=== PATIENT | female | born 2005 | race Two or more races ===

== ENCOUNTER 2024-10-27 01:07 | Emergency (ER) | payer BC, SELFPAY ==
[2024-10-27 01:08] VITALS: BMI 26.1
[2024-10-27 02:14] VITALS: BP 110/72; PULSE 73; RESP 19; TEMP 36.7; O2SAT 98
[2024-10-27 05:22] LABS: Basophils # (Auto) 0.1 Thou/mm3 (0.0-0.2); Basophils % (Auto) 0 % (0-2.5); Eosinophils # (Auto) 0.2 Thou/mm3 (0.0-0.5); Eosinophils % (Auto) 1 % (0-10); Hematocrit 41.2 % (36.0-46.0); Hemoglobin 14.4 g/dL (12.0-16.0); Immature Granulocytes % (Auto) 0 % (0-0); Immature Granulocytes Auto 0.04 Thou/mm3 (0.00-0.00); Lymphocytes # (Auto) 1.9 Thou/mm3 (1.0-4.8); Lymphocytes % (Auto) 11 % (10-50); Mean Corpuscular Hemoglobin 29.9 pg (25.0-35.0); Mean Corpuscular Volume 86 fL (80-100); Monocytes # (Auto) 1.4 Thou/mm3 (0.0-0.8); Monocytes % (Auto) 9 % (0-12); Neutrophils # (Auto) 12.8 Thou/mm3 (1.8-7.7); Neutrophils % (Auto) 78 % (37-80); Nucleated Red Blood Cell % 0 /100 WBC (0); Platelet Count 360 Thou/mm3 (140-440); RDW Standard Deviation 41.2 fL (36.4-46.3); Red Blood Count 4.81 Miln/mm3 (4.00-5.20); White Blood Count 16.4 Thou/mm3 (3.6-11.0)
--- NOTE | 2024-10-27 05:58 | PD.EDABDPN ---
ED Abdominal Pain RME/HPI General Chief Complaint: Abdominal Pain Stated complaint: MID ABDOMINAL PAIN RADIATES TO BACK Time seen by provider: 10/27/24 02:43 Arrival date/time: 10/27/24 01:07 Source: patient and family Mode of arrival: ambulatory Limitations: no limitations RME / HPI RME / HPI narrative: 19-year-old female presents to the ED with a complaint of left flank pain that radiates to her abdomen with associated nausea and vomiting. She indicates she usually gets this pain around the time of her menstrual cycle, but this time its much different in that when she vomited, she noticed blood streaks in the vomit. Her and her mother became concerned because she had never had blood streaked emesis. She denies fever or chills, dysuria or frequency. She denies diarrhea. Related Data Allergies Allergy/AdvReac Type Severity Reaction Status Date / Time No Known Allergies Allergy Verified 10/27/24 01:10 Review of Systems Review of Systems Systems Reviewed: All systems reviewed, normal except as documented Past Medical History Social History SMOKING STATUS: Never smoker ED Exam Narrative Physical exam: Alert and oriented 19-year-old female, no acute distress. She is afebrile. Blood pressure 110/72, pulse 73 and regular, respirations 19 and nonlabor, temperature 98.1, O2 sat 98% on room air. Lungs are clear, cardiovascular regular rate and rhythm, she has positive left CVA tenderness. Bowel sounds are present, abdomen is soft with mild generalized tenderness, worse in the left flank and right lower quadrant areas. No rebound or guarding. General Limitations: Present no limitations Course Course Course Narrative: 19-year-old female presents to the ED with a complaint of left flank pain that radiates to her abdomen with associated nausea and vomiting. She indicates she usually gets this pain around the time of her menstrual cycle, but this time its much different in that when she vomited, she noticed blood streaks in the vomit. Her and her mother became concerned because she had never had blood streaked emesis. She denies fever or chills, dysuria or frequency. She denies diarrhea. Alert and oriented 19-year-old female, no acute distress. She is afebrile. Blood pressure 110/72, pulse 73 and regular, respirations 19 and nonlabor, temperature 98.1, O2 sat 98% on room air. Lungs are clear, cardiovascular regular rate and rhythm, she has positive left CVA tenderness. Bowel sounds are present, abdomen is soft with mild generalized tenderness, worse in the left flank and right lower quadrant areas. No rebound or guarding. Labs reveal an elevated white count of 16.9, normal H&H, normal platelets. Chemistry panel, amylase and lipase as well as urinalysis with urine hCG are still pending. CT of the abdomen and pelvis with contrast has been ordered and pending due to the elevated white count. Quality Measures none Orders Category Date Time Status CT Screening NOW Care 10/27/24 05:[address] Screening X1 Care 10/27/24 05:[address] abdomen pelvis w con Stat Exams 10/27/24 05:33 Ordered Amylase Stat Lab 10/27/24 05:15 Received CBC Stat Lab 10/27/24 05:15 Completed CMP [Comprehensive Metabolic Panel] Stat Lab 10/27/24 05:15 Received HCG Qualitative,Urine Stat Lab 10/27/24 05:35 Ordered Lipase Stat Lab 10/27/24 05:15 Received Urinalysis Stat Lab 10/27/24 04:40 Ordered Urine Culture Stat Lab 10/27/24 04:40 Ordered Ketorolac Inj [Toradol Inj] Med 10/27/24 05:23 Discontinued 30 mg IM X1 ONE Vital Signs Vital signs: Vital Signs Temperature 98.1 F 10/27/24 02:14 Pulse Rate 73 10/27/24 02:14 Respiratory Rate 19 10/27/24 02:14 Blood Pressure 110/72 10/27/24 02:14 Pulse Oximetry (%) 98 10/27/24 02:14 Oxygen Delivery Method Room Air 10/27/24 02:14 Abdominal Pain MDM MDM Narrative MDM Narrative:: 19-year-old female presents to the ED with a complaint of left flank pain that radiates to her abdomen with associated nausea and vomiting. She indicates she usually gets this pain around the time of her menstrual cycle, but this time its much different in that when she vomited, she noticed blood streaks in the vomit. Her and her mother became concerned because she had never had blood streaked emesis. She denies fever or chills, dysuria or frequency. She denies diarrhea. Alert and oriented 19-year-old female, no acute distress. She is afebrile. Blood pressure 110/72, pulse 73 and regular, respirations 19 and nonlabor, temperature 98.1, O2 sat 98% on room air. Lungs are clear, cardiovascular regular rate and rhythm, she has positive left CVA tenderness. Bowel sounds are present, abdomen is soft with mild generalized tenderness, worse in the left flank and right lower quadrant areas. No rebound or guarding. Labs reveal an elevated white count of 16.9, normal H&H, normal platelets. Chemistry panel, amylase and lipase as well as urinalysis with urine hCG are still pending. CT of the abdomen and pelvis with contrast has been ordered and pending due to the elevated white count. Care of patient transferred to Dr. Danielson at the end of shift. Patient data External records reviewed:: None Clinical information provided by:: patient Social determinants that could affect healthcare access:: none Patient has the following chronic illnesses:: N/A How is presenting disease/condition affected by chronic disease/condition?: no chronic disease Evaluation data Lab and/or radiology exams considered but not ordered:: N/A Medications / Prescriptions Medication administrations:: Medication Administration History Discontinued Medications Ketorolac Tromethamine (Ketorolac Inj 60 Mg/2 Ml Vial) 30 mg IM X1 ONE Stop: 10/27/24 05:24 Patient was given Toradol 30 mg IM. Consultations Consultation(s) initiated? (list below): No Diagnosis Differential diagnosis abdominal pain: abdominal pain, acute appendicitis, calculus of kidney, endometriosis, gastroenteritis, pancreatitis and other (Pyelonephritis) Discharge Plan Prescriptions/Referrals Referrals: Lj Llamas MD [Primary Care Provider] - In 1 week Patient/Caregiver Discharge Instructions Print Language: Wolof
[2024-10-27] MEDS: KETOROLAC INJ 60 MG/2 ML VIAL 30 MG IM (06:32)
[2024-10-27] MEDS: ONDANSETRON INJ 2 MG/ML INJ 2 ML 4 MG IVP (06:33)
--- NOTE | 2024-10-27 06:58 | XR_ITS ---
Examination: Pelvic ultrasound, transabdominal, complete Technique: Transabdominal ultrasound of the pelvis performed using grayscale imaging Date and time of exam: October 27, 2024 0734 hours INDICATIONS: Onset pelvic pain beginning yesterday FINDINGS: Uterus 7.8 cm endometrial stripe 0.5 cm No uterine mass or intrauterine gestation Right ovary 7.8 cm arterial flow, 6.1 x 4.8 x 4.5 cm simple cyst Left ovary 4.1 cm arterial flow IMPRESSION: Right ovarian simple cyst, 6.1 x 4.8 x 4.5 cm
--- NOTE | 2024-10-27 07:15 | XR_ITS ---
Examination: PA chest single view TECHNIQUE: Upright PA chest single view Date and time: October 27, 2024 at 0721 hours INDICATIONS: Coughing beginning 2 days ago. FINDINGS: Normal heart size. Lungs are clear. The osseous structures are intact IMPRESSION: No active disease
--- NOTE | 2024-10-27 07:15 | EKG_ITS ---
[facility] Test Date: 2024-10-27 Pat Name: MARIANNE CRUMP Department: Room: - Gender: Female Performance Analyst: : 2005 Requested By: Romero Talbot Order Number: [id number] Reading MD: Romero Talbot Measurements Intervals [place] Rate: 70 P: 47 FL: 179 QRS: 69 QRSD: 85 T: 55 QT: 382 QTc: 414 Interpretive Statements SINUS RHYTHM No previous ECG available for comparison /store/S0/[id number]/ecg/[id number].pdf
[2024-10-27 07:19] LABS: Alanine Aminotransferase 28 U/L (10-49); Albumin, Serum 4.6 gm/dL (3.5-5.0); Albumin/Globulin Ratio 1.7 (1.2-2.2); Alkaline Phosphatase 78 U/L (46-116); Amylase 67 U/L (30-118); Anion Gap 13 (7-16); BUN/Creatinine Ratio 15 Ratio (12-20); Bilirubin,Total 0.7 mg/dL (0.3-1.2); Blood Urea Nitrogen 12 mg/dL (9-23); Calcium 9.7 mg/dL (8.3-10.6); Calcium (Corrected) 9.7 mg/dL (8.5-10.1); Carbon Dioxide 27.9 mMol/L (20.0-31.0); Chloride 102 mMol/L (98-107); Creatinine (Component) 0.8 mg/dL (0.6-1.3); Estimated Creatinine Clearance 106.1 mL/min (>60); Globulin 2.7 gm/dL (2.3-3.5); Glucose 90 mg/dL (74-106); Lipase 28 U/L (12-53); Osmolality,Calculated 284 (275-295); Potassium 3.9 mMol/L (3.4-5.1); Sodium 143 mMol/L (136-145); Total Protein 7.3 gm/dL (5.7-8.2); eGFR > 60 See Note
--- NOTE | 2024-10-27 07:38 | EDNOTE_ITS ---
Emergency Room Addendum Addendum Narrative: 0600: Care assumed from GEE Juárez, the previous shift emergency physician. Past medical, surgical, social and family history reviewed. Vitals and home medications reviewed. I will assume the care of the patient at this time pending CT abdomen pelvis, reassessment, and final disposition. Please refer to the emergency department record for history and examination from initial visit.?The following addendum documentation note is intended to reflect any pending information, findings, or radiology results not included in the patient?s initial chart. Nursing notes reviewed by me. Vital signs reviewed by me. [place] medical records reviewed by me. Patient has no previous ED visits for review. 0645: 19 year old female with no significant chronic medical history presented to the ED, accompanied by her mother, for evaluation of back pain that began at 3PM yesterday. The patient describes the pain as a moderate, aching sensation localized to the left lower back. It is associated with a sensation of abdominal bloating, with the patient describing her stomach as feeling like a balloon, as well as nausea and vomiting (6 episodes in the last 24 hours). She reports a history of similar pain and symptoms that began when she was 12 years old, which typically occur during menstruation. However, her mother notes that the pain has progressively worsened since its onset. The patient states that her menses began 7 days ago, but she is currently only experiencing light spotting. The patient?s mother also mentions that her older sister had a uterine fibroid removed, and that the mother herself has a history of fibroids. On examination, the abdomen is benign. CT scan of abdomen was cancelled and ultrasound pelvis was ordered. EKG interpreted by me, 10/27/2024 @ 08:16 AM. Sinus rhythm, rate 70, no STEMI, MA 179ms, QRS 85ms, QT/QTc 382/403ms. 0930: We reviewed all the results, analysis, and treatment plans. Patient is amenable to discharge. Strict return precautions were outlined. Patient was discharged in stable condition. RADIOLOGY Ordering Physician: Romero Danielson MD Date of Service: 10/27/24 Procedure(s): US pelvic complete Accession Number(s): [id number] cc: Romero Danielson MD; Garth Garcia MD; Lj Llamas MD~ Examination: Pelvic ultrasound, transabdominal, complete Technique: Transabdominal ultrasound of the pelvis performed using grayscale imaging Date and time of exam: October 27, 2024 0734 hours INDICATIONS: Onset pelvic pain beginning yesterday FINDINGS: Uterus 7.8 cm endometrial stripe 0.5 cm No uterine mass or intrauterine gestation Right ovary 7.8 cm arterial flow, 6.1 x 4.8 x 4.5 cm simple cyst Left ovary 4.1 cm arterial flow IMPRESSION: Right ovarian simple cyst, 6.1 x 4.8 x 4.5 cm Dictated By: Garth Garcia MD Signed By: <Electronically signed by Garth Garcia MD in OV>10/27/24 0806
[2024-10-27 08:25] VITALS: BP 89/57; BP 98/65; PULSE 74; RESP 18; TEMP 36.7; O2SAT 97
[2024-10-27 08:32] VITALS: BP 98/65; PULSE 74; RESP 18; O2SAT 97
[2024-10-27] MEDS: ACETAMINOPHEN 200 MG IV (09:10)
--- NOTE | 2024-10-27 09:14 | PC.NURSE ---
Dr. Danielson in to assess patient/ discuss results. Per MD patient to be given IV Tylenol then most likely discharge home. Patient to follow up with PCP and [facility]. Informed MD patient's urine has not been collected, per MD we will cancel the order for urine, blood cultures and see how patient does after IV Tylenol administered. Patient agrees
[2024-10-27 10:29] VITALS: BP 92/67; PULSE 79; RESP 18; TEMP 36.9; O2SAT 97
== END 2024-10-27 10:31 | disposition home or self-care (01) ==
PROVIDERS: Physician Assistant; Emergency Provider Family Medicine; PCP Family Medicine
DX: N83.291 Other ovarian cyst, right side (principal); R05.9 Cough, unspecified; R11.2 Nausea with vomiting, unspecified; D72.829 Elevated white blood cell count, unspecified
CPT/HCPCS: 36415; 71045; 76856; 80053; 81001; 81025; 82150; 83605; 83690; 84484; 85025; 85610; 85730; 87040; 87086; 93005; 96365; 96372; 96375; 99284; J0131; J1885; J2405

== ENCOUNTER → 2024-11-26 | Outpatient (CLI) | payer OTHER, SELFPAY ==
--- NOTE | 2024-11-26 13:53 | XR_ITS ---
Examination: Tibia-Fibula, right , 2 views Technique: Tibia-fibula AP lateral 2 views Date and time of exam: November 26, 2024 1414 hours INDICATIONS: Injury to lower leg November 24, 2024 with persistent lower leg pain. FINDINGS: No fracture or dislocation. No foreign body IMPRESSION: No fracture or dislocation
--- NOTE | 2024-11-26 13:53 | XR_ITS ---
EXAMINATION: Ankle, right 3 views . Technique: Ankle AP, oblique, lateral 3 views Date and time of exam: November 26, 2024 1414 hours INDICATIONS: Injury to the ankle November 24, 2024 with ankle pain. FINDINGS: No fracture or dislocation. No foreign body IMPRESSION: No fracture or dislocation
== END | disposition home or self-care (01) ==
LOC: CDIM 13:40
PROVIDERS: PCP Family Medicine; Referring Provider Physician Assistant; Visit Provider Physician Assistant
DX: S89.91XA Unspecified injury of right lower leg, initial encounter (principal); S90.911A Unspecified superficial injury of right ankle, initial encounter; X58.XXXA Exposure to other specified factors, initial encounter
CPT/HCPCS: 73590; 73610

== ENCOUNTER 2025-02-10 09:58 | Outpatient (AMB) | payer BC, SELFPAY ==
[2025-02-10 10:24] VITALS: BP 108/67; PULSE 81; RESP 17; TEMP 36.4; O2SAT 97; BMI 26.9
--- NOTE | 2025-02-10 10:24 | AMB.GYNCLNOT ---
Vital Signs 02/10/25 10:24 Height 1.63 m Height Method Stated Weight 71.271 kg Weight Measurement Method Standing Scale BMI 26.9 BP 108/67 Blood Pressure Source Automatic Cuff Blood Pressure Location Right Upper Arm Position Sitting Respiration 17 Pulse 81 Pulse Source Monitor Temp 97.6 F Temp Source Temporal Artery Scan Pulse Oximetry (%) 97 Oxygen Delivery Method Room Air Allergies/Home Meds Allergies & Medications Allergies No Known Allergies Allergy (Verified 10/27/24 01:10) Intake Visit Data Collection New Patient or Established: Established Patient (seen at [facility] within 3 years) Reason for Visit:: REF DYSMENORRHAGIA Fraud Examiner Required: No Do You Feel Safe at Home: Yes Authorities Contacted: N/A PCP or OBGYN visit in last 3 months: Yes Date of Last PCP or OBGYN visit: 12/03/24 Hx Now: No Are you currently on any form of Control: No Last menstrual period: 01/25/25 Pain Present Currently: No Smoking Status Smoking Status: Never smoker 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 She reports painful and irregular menstrual cycles since age 9, with her last menstrual period on 01/25/2025. The patient describes her menstrual cycles as irregular, sometimes occurring three times a month, with a duration of 7 days. She experiences heavy bleeding and pain during her periods. The pain is localized in her back and occurs either during or just before her menstrual cycle. Martine has never used control hormones to manage her symptoms. She reports that her condition impacts her daily functioning, though specific details were not provided. Martine has never had a pap smear and is currently not sexually active. She is taking sertraline 100 mg daily for OCD, which appears to be her only current medication. Medical History: - Obsessive-compulsive disorder (OCD), currently treated with medication - Dysmenorrhea since age 9 Obstetric History: - GPAL: A0 L0 - Patient is not currently Medications: - Sertraline 100 mg daily Social History: - Not currently sexually active Diagnostic Test Results and Labs: - Pelvic ultrasound (10/27/2024): Uterus normal, endometrial stripe 0.5 cm, right ovary 7.8 cm with cyst measuring 6.1 x 4.8 x 4.5 cm, left ovary 4.1 cm, no uterine mass or gestation Review of Systems Review of Systems Systems Reviewed: All systems reviewed, normal except as documented Exam General General Appearance: alert, in no apparent distress and healthy appearing Head Head exam: atraumatic Neck Neck exam: Present normal inspection and trachea midline Chest Chest inspection: Present normal inspection and symmetric chest wall rise External exam: Present normal external exam; Absent tenderness Neuro Neurological exam: Present oriented X3 Psych Psychiatric exam: Present normal affect and normal mood Assessment & Plan Diagnosis / Problem List (1) Cyst of right ovary: Status: Acute (2) Painful menstruation: Status: Acute Plan Dysmenorrhea with irregular menstrual cycles Assessment: Patient reports painful periods since age 9, with irregular cycles occurring up to three times a month. Pain is localized to the back, occurring during or just before menstruation. Last menstrual period was on 01/25/2025, lasting 7 days, with heavy flow. Differential diagnoses include dysmenorrhea, ovarian cysts, polycystic ovarian syndrome (PCOS), and endometriosis. Recent pelvic ultrasound (10/27/2024) showed a normal uterus with endometrial stripe of 0.5 cm, and a right ovarian cyst measuring 6.1 x 4.8 x 4.5 cm. Left ovary measured 4.1 cm. Patient has never been on hormonal control. Plan: - Prescribe tranexamic acid for heavy menstrual bleeding and associated pain - Start on first day of menstrual cycle for 5 days - Multiple refills provided - Order basic lab panel including ovarian and thyroid hormones - Repeat pelvic ultrasound in 3 months to reassess ovarian cyst size - Follow up in one month to review lab results and discuss further management - Maral to provide instructions and schedule follow-up appointment Right ovarian cyst Assessment: Pelvic ultrasound on 10/27/2024 revealed a right ovarian cyst measuring 6.1 x 4.8 x 4.5 cm. The right ovary measured 7.8 cm overall. This finding requires follow-up to monitor for potential growth or persistence. Plan: - Repeat pelvic ultrasound in 3 months to reassess cyst size - If cyst persists or grows, consider minimally invasive procedure for removal Obstetric-gynecological preventive care Assessment: Patient is 19 years old, 0, and has never had a Pap smear. She is currently not sexually active. Plan: - Discuss importance of cervical cancer screening and schedule first Pap smear
== END 2025-02-10 11:12 | disposition home or self-care (01) ==
LOC: HODSOBC 09:58
PROVIDERS: PCP Family Medicine; Referring Provider Family Medicine; Supervising Provider Obstetrics & Gynecology; Visit Provider Obstetrics & Gynecology
DX: N83.201 Unspecified ovarian cyst, right side (principal); N94.6 Dysmenorrhea, unspecified
CPT/HCPCS: 99213; G0463

== ENCOUNTER → 2025-02-13 | Outpatient (CLI) | payer BC, SELFPAY ==
--- NOTE | 2025-02-13 15:52 | XR_ITS ---
Examination: Pelvic ultrasound, transabdominal, complete Technique: Transabdominal ultrasound of the pelvis performed using grayscale imaging Date and time of exam: February 13, 2025, 1610 hours INDICATIONS: Right-sided abdominal pain pelvic pain 3 months FINDINGS: Uterus 7.0 cm endometrial stripe 0.6 cm No uterine mass or intrauterine gestation Right ovary 2.3 cm arterial flow. Left ovary 3.3 cm arterial flow, 2.1 x 1.5 x 2.3 cm simple cyst IMPRESSION: Left ovarian simple cyst 21 x 15 x 23 mm
--- NOTE | 2025-02-13 15:52 | XR_ITS ---
Examination: Transvaginal ultrasound of the pelvis, complete Technique: Transvaginal sonographic images pelvis performed using hussein scale imaging Exam date and time: February 13, 2025, 1620 hours FINDINGS: Uterus 7.1 cm endometrial stripe 0.6 cm No uterine mass or intrauterine gestation Right ovary 3.6 cm arterial flow small follicles Left ovary 3.5 cm arterial flows, small follicles the largest 14 mm IMPRESSION: No uterine mass or intrauterine gestation
== END | disposition home or self-care (01) ==
PROVIDERS: PCP Family Medicine; Referring Provider Obstetrics & Gynecology; Visit Provider Obstetrics & Gynecology
DX: N83.292 Other ovarian cyst, left side (principal)
CPT/HCPCS: 76830; 76856

== ENCOUNTER → 2025-03-11 | Outpatient (CLI) | payer BC, SELFPAY ==
[2025-03-11 13:45] LABS: Thyroid Stimulating Hormone 0.90 uIU/mL (0.55-4.78)
[2025-03-11 13:59] LABS: CA 125 12.0 U/mL (<30.2); Follicle Stimulating Hormone 7.07 mIU/mL (See Note)
[2025-03-17 06:39] LABS: DHEA Sulfate* 185 mcg/dL (51-321)
== END | disposition home or self-care (01) ==
LOC: COPL 11:59
PROVIDERS: PCP Family Medicine; Referring Provider Obstetrics & Gynecology; Visit Provider Obstetrics & Gynecology
DX: N83.201 Unspecified ovarian cyst, right side (principal)
CPT/HCPCS: 36415; 82627; 83001; 84443; 86304

== ENCOUNTER 2025-04-08 11:14 | Outpatient (AMB) | payer BC, SELFPAY ==
--- NOTE | 2025-04-08 11:34 | GYNCLNT_ITS ---
Vital Signs 04/08/25 11:35 Height 1.63 m Height Method Stated Weight 74.843 kg Weight Measurement Method Standing Scale BMI 28.1 BP 105/69 Blood Pressure Source Automatic Cuff Blood Pressure Location Right Upper Arm Position Sitting Respiration 18 Pulse 77 Pulse Source Monitor Temp 98.1 F Temp Source Temporal Artery Scan Pulse Oximetry (%) 97 Oxygen Delivery Method Room Air Allergies/Home Meds Allergies & Medications Allergies No Known Allergies Allergy (Verified 04/08/25 11:35) Medication Reconciliation drospirenone 3 mg-ethinyl estradiol 0.02 mg tablet (RASHAD (28)) 1 tab PO QDAY 84 days #84 tabs 04/09/25 [Rx] Intake Visit Data Collection New Patient or Established: Established Patient (seen at [facility] within 3 years) Reason for Visit:: FOLLOW UP US/ LAB RESULTS Seen by Clinical Staff ONLY (RN/MA): No 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 Do You Feel Safe at Home: Yes Authorities Contacted: N/A PCP or OBGYN visit in last 3 months: Yes Date of Last PCP or OBGYN visit: 02/10/25 Hx Now: No Are you currently on any form of Control: No Last menstrual period: 04/05/25 Pain Present Currently: Yes Pain Location: Abdomen (PELVIC) Pain Scale Used: Escobar-Huddleston/Numerical Pain scale:: 5 Smoking Status Smoking Status: Never smoker Immunizations Flu Vaccine in the Last 12 Months: No Flu Vaccine Exclusion Criteria: No Exclusion Criteria 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 1. Little interest or pleasure in doing things: not at all 2. Feeling down, depressed, or hopeless: not at all Total score: 0 PHQ-9 3. Trouble falling or staying asleep, or sleeping too much: Not at all 4. Feeling tired or having little energy: Not at all 5. Poor appetite or overeating: Not at all 6. Feeling bad about yourself - or that you are a failure or have let yourself or your family down: Not at all 7. Trouble concentrating on things, such as reading the newspaper or watching television: Not at all 8. Moving or speaking so slowly that other people could have noticed? - Or the opposite - being so fidgety or restless that you have been moving around a lot more than usual: not at all 9. Thoughts that you would be better off or of hurting yourself in some way: Not at all Total score: 0 If you checked off any problems, how difficult have these problems made it for you to do your work, take care of things at home, or get along with other people?: not difficult at all Source: Developed by Drs. Garland Forrest, Monica Joseph, Froylan Ortez and colleagues, with an educational deneen from [employer]. Depression screen completed yes Social History Living Situation History Marital Status: Unknown Lives With: Family Housing: House Tobacco History Smoking Status: Never smoker Second Hand Smoke Exposure: No Alcohol History Alcohol Intake: Never Domestic Abuse History Do You Feel Safe at Home: Yes History of Present Illness HPI Narrative Martine Wolf presents for follow-up regarding a previously identified ovarian cyst and ongoing severe menstrual pain. She reports experiencing unbearable pain every month during her menstrual periods. The pain is severe enough that she requires bedrest and has to miss work and school during her cycles. The patient had blood work completed approximately 3 weeks ago and underwent pelvic ultrasound imaging for evaluation of her symptoms. She is a student and reports missing work and school due to severe menstrual pain requiring bedrest. ROS: Genitourinary: Positive for severe pelvic pain with menstrual cycles requiring bedrest and causing work/school absences. Diagnostic Test Results and Labs: - Pelvic ultrasound: Uterus 7 cm, endometrial stripe 6 mm (normal), no mass, no gestation, no fibroids. Right ovary normal, left ovary normal. Previously identified cyst completely resolved. - CA-125: 21.25 (negative) - FSH: Normal (reference range <23) - Thyroid panel: Normal - DHEA: Negative for PCOS Exam General General Appearance: alert, in no apparent distress and healthy appearing Head Head exam: atraumatic Neck Neck exam: Present normal inspection and trachea midline Chest Chest inspection: Present normal inspection and symmetric chest wall rise External exam: Present normal external exam; Absent tenderness Neuro Neurological exam: Present oriented X3 Psych Psychiatric exam: Present normal affect and normal mood Office Procedures [facility] Clinic LOC & Office Proc's Nursing/Assessment Patient Status: Established Patient OB Clinic Nursing Assessment: Medication Reconciliation, Update PMH in EMR and Vital Signs OB Clinic Coordination of Care: Complex Care and Chronic Disease 1-5, Education Complex Pt/Fam, Consent,records obtained, informed consent, Results/Orders obtained and Staff clarify orders Established Patient Charge Established Patient Point Assignment: 95 Established Patient Point Charge: EP Level 3 (80-115) Assessment & Plan Diagnosis / Problem List (1) Painful menstruation: Status: Acute (2) Cyst of right ovary: Status: Acute Plan Severe Dysmenorrhea: - Unbearable monthly menstrual pain requiring bedrest and causing missed work and school. - Complete workup including pelvic ultrasound, CA-125, FSH, thyroid panel, and DHEA-S all normal. - Likely developing endometriosis given negative workup with persistent severe cyclical pain. Plan: - Start control pills to suppress body's own hormones and provide low-dose hormonal replacement. - Begin pills on day 4 of current menstrual cycle. - Prescription sent to [facility]. - If control pills ineffective, consider anti-hormonal therapy with Lupron to stop periods temporarily. - If medical management fails, laparoscopic surgery with camera to visualize and burn endometriosis lesions would be considered. - Follow-up in 3 months to assess symptom improvement. Resolved Ovarian Cyst: - Previous ovarian cyst completely resolved on follow-up ultrasound performed on 02/13/25. - Most likely was hemorrhagic cyst that formed during ovulation with blood clot absorbed over 2-3 months. Plan: - No further intervention needed for resolved cyst. - Continue routine monitoring. - Schedule 3-month follow-up appointment.
[2025-04-08 11:35] VITALS: BP 105/69; PULSE 77; RESP 18; TEMP 36.7; O2SAT 97; BMI 28.1
== END 2025-04-08 11:52 | disposition home or self-care (01) ==
LOC: HODSOBC 11:14
PROVIDERS: Supervising Provider Obstetrics & Gynecology; Visit Provider Obstetrics & Gynecology
DX: N94.6 Dysmenorrhea, unspecified (principal); Z87.42 Personal history of other diseases of the female genital tract
CPT/HCPCS: 99213; G0463